=== PATIENT | female | born 1995 | race Caucasian/White ===

== ENCOUNTER 2019-05-16 18:23 | Inpatient (IN) | payer BC ==
[2019-05-16] VITALS (9 sets, daily range): BP systolic 122–138; BP diastolic 62–102; PULSE 93–130; TEMP 98.1–99
[~2019-05-16] VITALS: Ht 154.9 cm; Wt 65.0 kg
--- NOTE | 2019-05-16 18:30 | NUR ---
1830 G1L0 39.5 WEEK GEST TO LR5 WITH C/O VAGINAL BLEEDING THAT STARTED ABOUT 30 MINUTES AGO. NO ACTIVE VAGINAL BLEEDING BUT STATED WAS AT WORK AND HAD MOD AMOUNT WHEN WENT TO THE BATHROOM. DENIES CONTRACTIONS BUT CONTRACTIONS NOTED ON EFM EVERY 2 MINUTES AND CONSISTANT. SVE WITH SM AMOUNT DARK BROWNISH DISCHARGE NOTED ON [place]. SVE /-[address] WHITMAN HERE AND NOTED OF PTS COMPLAINT. STATES TO ADMIT PT. ADM ASSESSMENT COMPLETED. DR WHITMAN IN TO VISIT WITH PT AND SVE DONE. NO ACTIVE VAG BLEEDING NOTED.
--- NOTE | 2019-05-16 19:50 | NUR ---
1949 IV STARTED IN LEFT FOREARM. IV BOLUS GIVEN. PERMITS SIGNED
[2019-05-16 20:08] LABS: HEMOGLOBIN 12.7 g/dl (12.5-16.0); MEAN CELL VOLUME 91 fl (80.0-100.0); MEAN CORPUSCULAR HEMOGLOBIN 32 pg (27.0-31.0); MEAN CORPUSCULAR HGB CONC 36 g/dl (33.0-37.0); MEAN PLATELET VOLUME 10.6 fl (7.4-10.4); PLATELET COUNT 177 K/mm3 (130-400); RED BLOOD COUNT 3.94 M/mm3 (4.10-5.30)
[2019-05-16 20:19] LABS: HEMATOCRIT 35.8 % (37.0-47.0)
[2019-05-16] MEDS ORDERED: PRENATAL TABLET PO (20:41)
[2019-05-16] MEDS ORDERED: OSCAL 500 TAB500 MG PO (20:47)
[2019-05-16 21:10] LABS: BAND 3 % (0-10); LYMPHOCYTE 7 % (20.0-51.0); NEUTROPHILS 86 % (42.0-75.2); PLATELET ESTIMATE NORMAL (NORMAL)
--- NOTE | 2019-05-16 21:30 | NUR ---
2129 IV SITE INFLITRATED AND RESTARTED IN FIGHT FOREARM. STATES CONTRACTIONS FEEL THE SAME ON ADM. VISITING.
--- NOTE | 2019-05-16 22:40 | NUR ---
1484 RESTING QUIETLY. STATES CONTRACTIONS FEEL ABOUT THE SAME. APPEARS COMFORTABLE, VISITING WITH BOYFRIEND AND WATCHING A MOVIE
--- NOTE | 2019-05-16 23:30 | NUR ---
2330 READY FOR EPID. ADMISSIONS CLINICIAN NOTIFIED. IV FLUIDS LR STARTED TO INT SITE.
--- NOTE | 2019-05-16 23:50 | NUR ---
2350 SITTING ON SIDE OF BED FOR EPID PLACEMENT. 2354 EPID DOSED. SEE ANESTHSIA RECORD FOR MORE INFORMATION
[2019-05-17] VITALS (41 sets, daily range): BP systolic 107–152; BP diastolic 54–103; PULSE 80–157; TEMP 98.1–99.9
--- NOTE | 2019-05-17 03:15 | NUR ---
0315 MIN VARIABILITY FOR 15 MIN WITH LATE DECEL X1. POSISTION CHANGED FROM LEFT LATERAL TO RIGHT LATERAL AND IV BOLUS STARTED.
--- NOTE | 2019-05-17 04:30 | NUR ---
0430 TEMP 99.6. NO ACCELS NOTED IN LAST 15 MIN AND MIN VARIABILITY NOTED. DR WHITMAN NOTIFIED OF TEMP AND VARIABILITY AND SVE 8CM.
--- NOTE | 2019-05-17 06:10 | NUR ---
Bedside report recieved per Mary RN. 0610: SVE-10/100/0, pericare done and patient sat up with legs lowered and comfortable at this time. FHR baseline 155-160bpm with moderate variability noted. 0640: Dr. Desouza called and notified on patient status and orders to begin pushing. 0645: Pushing instructions gone over and patient begins to start pushing with this RN with each contraction. 0700: Thompson catheter removed at this time and patient tolerates well. Patient continues to push with contractions, FHR baseline 165-170bpm with moderate variability noted. 0720: Dr. Desouza at bedside and assess patient and FHR strip, patient prepped for vaginal delivery. Patient begins to push with Dr. Desouza 0730: FHR monitor tracing maternal heart rate and monitor adjusted. FHR tracing recurrent variable decelerations. 0751: Dr. Desouza cuts median episiotomy and patient pushes with contraction. 0751: Spontaneous vaginal delivery of head followed by body, infant bulbed sryinged and to patient abdomen and SJames Mcintyre RN assumes care of infant. 0754: Spontaneous vaginal delivery of placenta and pitocin bolus started per protocol. Fundal massage done/moderate bleeding/firm Dr. Desouza begins to repair laceration. Pericare done, fundal massage done/firm/ bleeding WNL. Ice pack to perineum and patient repositioned. Plan of care discussed
--- NOTE | 2019-05-17 10:45 | NUR ---
Patient sits on edge of bed and dangles feet, epidural catheter removed and patient tolerates well, Patient assisted to wheelchair and to bathroom and voids, pericare done, new gown/underwear/icepack on. Patient to wheelchair and to new room. Oriented to room. Plan of care discussed.
[2019-05-18 03:13] VITALS: BP 115/57; PULSE 85; TEMP 97.5
[2019-05-18 06:58] LABS: HEMATOCRIT 27.8 % (37.0-47.0); HEMOGLOBIN 9.8 g/dl (12.5-16.0)
[2019-05-18 09:04] VITALS: BP 124/71; PULSE 80; TEMP 98.2
[2019-05-18] MEDS ORDERED: IBU600 MG PO (10:28)
--- NOTE | 2019-05-18 10:33 | NUR ---
Initial visit; Parents thanked Inductor Tester for offering congratulations and God's blessings for the of their daughter. Inductor Tester thanked family for choosing [facility].
--- NOTE | 2019-05-18 14:10 | NUR ---
Discharge instructions given. Pt verbalizes understanding. No further questions noted. Bands matched and hugs tag removed.
== END 2019-05-18 14:20 | disposition home or self-care (01) | DRG 807 ==
LOC: LDRO 18:23 → LDR 19:12 → OB 05-17 10:45
PROVIDERS: Obstetrics & Gynecology; ADMIT Obstetrics & Gynecology
PROC: 10E0XZZ Delivery of Products of Conception, External Approach (ICD-10-PCS; principal; 2019-05-17)
PROC: 0W8NXZZ Division of Female Perineum, External Approach (ICD-10-PCS; 2019-05-17)
DX: O13.4 Gestational [pregnancy-induced] hypertension without significant proteinuria, complicating childbirth (principal); Z37.0 Single live birth; O69.89X0 Labor and delivery complicated by other cord complications, not applicable or unspecified; Z3A.39 39 weeks gestation of pregnancy; Z23 Encounter for immunization; O99.824 Streptococcus B carrier state complicating childbirth; O99.02 Anemia complicating childbirth; D64.9 Anemia, unspecified
CPT/HCPCS: J2590; J2795; J7120

== ENCOUNTER 2021-03-07 17:13 | Emergency (ER) | payer BC, OTHER ==
[~2021-03-07] VITALS: Ht 154.9 cm; Wt 49.1 kg
[~2021-03-07 17:13] MED LIST: IBU600 MG PO; OSCAL 500 TAB500 MG PO; PRENATAL TABLET PO
[2021-03-07] MEDS ORDERED: NORCO 325 MG-51 TAB PO (17:38)
[2021-03-07] MEDS ORDERED: AMOXICILLIN 50500 MG PO (17:38)
[2021-03-07 17:48] VITALS: BP 134/66; PULSE 97; TEMP 98.4
== END 2021-03-07 17:54 | disposition home or self-care (01) ==
LOC: COL.ER 17:13
DX: K04.7 Periapical abscess without sinus (principal)